=== PATIENT | male | born 1960 | race Two or more races ===

== ENCOUNTER 2024-02-29 15:44 | Emergency (ER) | payer OTHER ==
[~2024-02-29] VITALS: Ht 172.7 cm; Wt 79.5 kg
[2024-02-29 15:48] VITALS: TEMP 98
[2024-02-29] MEDS ORDERED: SITA1TBM7 PO (15:53)
[2024-02-29] MEDS: HYDROCODONE/ACETAMINOPHEN 5-325 MG TABLET PO ONE (19:19)
[2024-02-29] MEDS: IBUPROFEN 600 MG TABLET PO ONE (19:19)
[2024-02-29 19:50] VITALS: BP 127/78; PULSE 54; RESP 18
[2024-02-29] MEDS ORDERED: HYDR-4062 PO (20:36)
[2024-02-29] MEDS ORDERED: POLY238P PO (20:36)
[2024-02-29] MEDS ORDERED: IBUP-1554 PO (20:36)
== END 2024-02-29 20:45 | disposition home or self-care (01) ==
LOC: EMS 15:44
DX: S00.93XA Contusion of unspecified part of head, initial encounter (principal); S80.02XA Contusion of left knee, initial encounter; S80.01XA Contusion of right knee, initial encounter; S90.32XA Contusion of left foot, initial encounter; E11.9 Type 2 diabetes mellitus without complications; W10.8XXA Fall (on) (from) other stairs and steps, initial encounter; Y93.89 Activity, other specified; Y92.89 Other specified places as the place of occurrence of the external cause; Y99.8 Other external cause status
CPT/HCPCS: 29505; 70450; 99284